=== PATIENT | female | born 1965 | race Hispanic/Latino ===

== ENCOUNTER 2024-04-06 01:51 | Day surgery (SDC) | payer OTHER, SELFPAY ==
[2024-03-29 11:45] VITALS: BMI 31.5
--- NOTE | 2024-03-29 11:50 | PC.NURSE ---
Report to the Outpatient Waiting Room, entrance under the green pavilion located off [facility], at time _0600__ on date 04/06/24_. Planned Procedure Time: 0730__.? Time changes happen often and if your time is changed the preop area will call you the afternoon before. - You and your visitor will be asked to self-screen and do not enter if you have any COVID symptoms. Please call surgeon if you need to reschedule. - A mask is optional within the hospital at this time. Patients may have clear liquids (water, carbonated beverages, clear teas, apple juice) until 3 hours prior to surgery with a maximum of 20 ounces. - No food from midnight until time of surgery and no smoking - Infants may have breast milk until 4 hours before surgery, infant formula 6 hours prior to surgery. - Children will be allowed to drink immediately following surgery.? If applicable, please bring a bottle or sippy cup to assist with drinking. Juice, water, soda, and popsicles are readily available.? For infants on formula, please bring formula the day of surgery.? Pacifiers are allowed. Take only the following medications with a SIP of water on the morning of surgery: _NONE DO NOT STOP ANY OF YOUR OTHER PRESCRIPTION MEDICATIONS PRIOR TO SURGERY EXCEPT THE FOLLOWING Medications to discontinue per physician NONE Date to take last dose Please no make-up, nail korean, hairspray, perfume, deodorant, or body powder the day of surgery.? No jewelry (including any body piercings) or valuables the day of surgery, leave them at home.? Please take a shower or bath the night before, or the morning of, surgery with an antibacterial soap.? Wear comfortable, loose fitting clothing.? Children are encouraged to wear pajamas. - Jewelry must be removed prior to entering the operating room.? Rings and piercings that are not removed may be cut off. - The hospital will not accept responsibility for valuables.? - Please leave all valuables, including medications, at home the day of surgery. If you are going home after surgery, a licensed motorcycle delivery driver must drive you home.? - NO public transportation without another adult if you receive anesthesia. - We recommend that an adult stay with you for 24 hours following discharge. - We also recommend that you do not drive, make important decision, drink alcoholic beverages, or take any drugs that were not prescribed by your health care provider for at least 24 hours after your discharge time. For Pediatric surgeries, we recommend two adults accompany the child home. Follow any additional instructions given to you from your surgeon. Telephone instructions given to _PATIENT_and asked if any additional questions and then verbalized understanding. Patient advised to call surgeon office or pre surgery nurse liaison [phone] if any additional questions.
[2024-04-06 06:29] VITALS: BP 119/66; PULSE 71; TEMP 36.4; O2SAT 98
[2024-04-06 06:30] VITALS: BMI 32.8
[2024-04-06] MEDS: LACTATED RINGERS 1,000 ML 30 ML IV CONT (06:32)
[2024-04-06] MEDS: ACETAMINOPHEN 500 MG TABLET 1000 MG PO (06:32)
--- NOTE | 2024-04-06 06:42 | WPDANESEPPF ---
Anes - Initial Pre Proc Eval Procedure: Operation Date: 04/06/24 07:30 Proposed Procedures p Hysteroscopy Dilation and Curettage with Removal of Any Endometrial Lesions If needed - Venancio Jones MD Date/Time: 04/06/24 06:42 Surgeon: Venancio Jones MD Pre Op Diagnosis: Thickened Endometrium Patient Data Age: 58 Gender: F Height: 1.73 m Weight: 98 kg Last Vital Signs Temp 36.4 C L 04/06/24 06:29 Pulse 71 04/06/24 06:29 BP 119/66 04/06/24 06:29 Pulse Ox 98 04/06/24 06:29 O2 Del Method Room Air 04/06/24 06:29 Allergies Allergy/AdvReac Type Severity Reaction Status Date / Time Penicillins Allergy Mild hives Unverified 03/30/24 11:31 Home Medications Medication Instructions Recorded Confirmed Type No Home Medications 03/03/24 03/29/24 History Patient hx anesthesia problems: none Family hx anesthesia problems: none Results Review: All pre-operative results and documents have been reviewed as part of the pre-operative evaluation. [facility]LY [facility] Past Medical History Medical History (Updated 04/06/24 @ 06:42 by Dez Tate MD) Obesity Surgical History Surgical History H/O tubal ligation Family History Family History Mother Diabetes mellitus Father Acute myocardial infarction Grandparent Diabetes mellitus Social History Social History Smoking status: Never smoker Alcohol intake: never Substance use: never Living arrangements: with family Anes - Eval Final PreProcedure Day of Procedure 04/06/24 06:42 Patient weight: obese Heart: regular rate and rhythm Lungs: clear to auscultation Airway: Mallampati scale class II Neurological: alert and oriented Last oral intake: >/= 8 hours ASA classification: II Emergent: no Anesthetic plan: proceed Anesthesia type and monitoring: general GIVS and standard monitoring Results Review: All pre-operative results and documents have been reviewed as part of the pre-operative evaluation. Informed Consent: The patient's anesthetic plan and its attendant risks and benefits were discussed with the patient/family/POA. Questions were solicited and answers provided to the satisfaction of the patient/family/POA.
--- NOTE | 2024-04-06 07:27 | WPDHPUPDATE1 ---
History and Physical Update Update Date/Time: 04/06/24 07:27 History and Physical has been reviewed, including an updated exam of the patient. There are NO changes in the patient's condition. Risks, benefits, and alternatives have been discussed and questions answered. Patient agrees to proceed with procedure.
[2024-04-06] MEDS: ceFAZolin 2 GM/D5W 50 ML 2 GM/50 ML BAG IVPB (07:32)
[2024-04-06] MEDS: LIDOCAINE HCL 1% LOCAL INJ 20 ML VIAL 10 ML INFILTRATE (07:42)
--- NOTE | 2024-04-06 07:56 | W.PM.PROC2 ---
Procedure Note - Detailed Date of Procedure 04/06/24 Pre-op Diagnosis Thickened Endometrium Post-op Diagnosis Same Procedure Performed Hysteroscopy with dilation and curettage and removal of endometrial lesion Surgeon Venancio Jones MD Anesthesia MAC and Local Indications thickened endometrial stripe scant tissue obtained on endometrial biopsy Findings uterus sound to 7.5 cm on hysteroscopy large endometrial polyp and 2 smaller endometrial polyps filling the cavity. The rest of the cavity was atrophic appearing. Description of Procedure After informed consent was obtained patient was taken to the operating room and adequate IV sedation was administered. Attention was turned to the vagina. Speculum was inserted. Single-tooth tenaculum placed on the anterior lip of the cervix. 10 cc of 1% lidocaine was injected at the cervical vaginal interface at the 2, 5, 8 and 10 position. The uterus was sounded to 7.5 cm. The cervix was dilated to an 4 Bowden dilator. Using hydrodilation the hysteroscope was inserted into the cavity. The findings were endometrial polyp filling the cavity. The hysteroscope was removed. a stone forcep was used and a small piece of polyp was removed. Using the obviated instrument the polyp was removed completely. The rest of the cavity appeared normal. The hysteroscope was removed. A curettage was performed with minimal tissue obtained. The single-tooth tenaculum was removed hemostasis was noted at the tenaculum site. Sponge count correct. The patient taken to recovery in stable condition. Estimated Blood Loss 5 Drains No Packing No Pathology Yes ( endometrial shavings and endometrial curetting) Complications No immediate complications Condition Stable Disposition Same day [facility] Billing Surgery - Charge Forward: Surgery Billing
[2024-04-06 07:58] VITALS: BP 110/63; PULSE 70; RESP 16; O2SAT 97
[2024-04-06 08:25] VITALS: BP 110/63; PULSE 70; RESP 20
[2024-04-06 08:40] VITALS: BP 110/63; PULSE 70; RESP 20
== END 2024-04-06 08:47 | disposition home or self-care (01) ==
PROVIDERS: Visit Provider Obstetrics & Gynecology
PROC: 0U5B8ZZ Destruction of Endometrium, Via Natural or Artificial Opening Endoscopic (ICD-10-PCS; CPT 58563; principal; 2024-04-06 07:30)
DX: R93.89 Abnormal findings on diagnostic imaging of other specified body structures (principal); N84.0 Polyp of corpus uteri; E66.9 Obesity, unspecified; Z68.32 Body mass index [BMI] 32.0-32.9, adult; Z98.890 Other specified postprocedural states; Z98.51 Tubal ligation status; Z82.49 Family history of ischemic heart disease and other diseases of the circulatory system
CPT/HCPCS: 58558; 88305; A9270; J0690; J1100; J2003; J2250; J2405; J2704; J3010; J7120